=== PATIENT | female | born 1960 | race Caucasian/White ===

== ENCOUNTER → 2016-11-16 | Outpatient (CLI) | payer OTHER ==
[~2016-11-16] MED LIST: ARIMIDEX1 MG PO; BENADRYL ALLERG25 MG PO; BENADRYL25 MG PO; COMPAZINE10 MG PO; Ecotrin PO; FA-80.8 MG PO; IMDUR60 MG PO; LIPITOR40 MG PO; LOPRESSOR25 MG PO; Lipitor PO; Lopressor PO; NITROSTAT,NITR0.4 M1 SL; NORCO 5/3251 TABLET PO; Nitrostat,NitroQuick SL; OMEGA 3-6-91200 MG PO; PLAVIX75 MG PO; PROAIR HFA8.5 GM IH; PriLOSEC PO; Proventil,Ventolin H IH; STOOL SOFTENER250 MG PO; TRAMADOL HCL50 MG PO; VITAMIN D31000 UNIT PO; Valium PO; ZESTRIL20 MG PO; ZOFRAN ODT4 MG PO; ZOFRAN4 MG PO; Zestril,Prinivil PO; Zocor PO; Zoloft PO
== END | disposition home or self-care (01) ==
LOC: RAD 07:24
DX: J98.11 Atelectasis (principal); R16.0 Hepatomegaly, not elsewhere classified; C34.91 Malignant neoplasm of unspecified part of right bronchus or lung
CPT/HCPCS: 71260; 74177

== ENCOUNTER 2017-06-01 18:25 | Inpatient (IN) | payer OTHER ==
[~2017-06-01] VITALS: Ht 147.3 cm; Wt 68.1 kg
[~2017-06-01 18:25] MED LIST changes: +OXYCODONE HCL5 MG PO
[2017-06-01 20:06] LABS: EOSINOPHIL (%) 3.4 % (0-5); EOSINOPHIL COUNT 0.3 K/uL (0-0.3); HEMATOCRIT 23.8 % (36.0-46.0); IMMATURE GRANULOCYTE (%) 1.4 % (0.0-0.7); IMMATURE GRANULOCYTE COUNT 0.1 K/uL; INSTRUMENT ABS NEUTROPHIL CT 7.5 K/uL; LYMPHOCYTE COUNT 0.6 K/uL (1.0-2.8); MCH 30.3 PG (29.0-34.0); MCHC 33.2 G/DL (30.0-36.0); MCV 91.2 FL (83-99); MEAN PLAT.VOLUME 10.3 uM^3 (9.5-12.4); MONOCYTE (%) 7.4 % (3-12); MONOCYTE COUNT 0.7 K/uL (0-0.8); NEUTROPHIL (%) 81.3 % (45-76); NEUTROPHIL COUNT 7.5 K/uL (1.8-6.4); RBC DIS.WIDTH-CV 15.6 % (11.8-14.6); RED BLOOD COUNT 2.61 M/uL (3.80-5.20); WHITE BLOOD COUNT 9.3 K/uL (4.1-10.2)
[2017-06-01 20:14] LABS: CHLORIDE 103 mEq/L (99-109); SODIUM 136 mEq/L (136-147)
[2017-06-01 20:16] LABS: GLUCOSE 112 mg/dL (70-99); POTASSIUM 3.2 mEq/L (3.7-5.4)
[2017-06-01 20:17] LABS: ANION GAP 11 MEQ/L (2-14)
[2017-06-01 20:18] LABS: TOTAL BILIRUBIN 0.3 mg/dL (0.0-1.0)
[2017-06-01 20:19] LABS: ALKALINE PHOSPHATASE 81 IU/L (3-129)
[2017-06-01 20:20] LABS: GFR ESTIMATE (CALCULATED) > 59 mL/min/
[2017-06-01 20:21] LABS: UREA NITROGEN (BUN) 16 mg/dL (9-23)
[2017-06-01 20:57] LABS: PLATELET COUNT 137 K/uL (156-360)
[2017-06-01 20:58] LABS: PLAT.SUFFICIENCY DECREASED
[2017-06-01 21:43] LABS: ADD MIUA? YES; BILIRUBIN NEGATIVE; BLOOD SMALL; COLOR YELLOW ((YELLOW)); GLUCOSE (STRIP) NEGATIVE; KETONES NEGATIVE; LEUKOCYTES MODERATE; NITRITE NEGATIVE; PROTEIN (STRIP) NEGATIVE; SPECIFIC GRAVITY 1.011 (1.000-1.030); UROBILINOGEN 0.2 MG/DL (0.2-1.0)
[2017-06-01 21:49] LABS: BACTERIA RARE /HPF; CALCIUM OXALATE CRYSTALS 3+ /HPF; EPITHELIAL CELLS RARE /HPF; HYALINE CASTS 20-30 /LPF; MUCUS 1+ /LPF; RED BLOOD CELLS 0-5 /HPF (0-5); UCUL ADDED? NO
[2017-06-01 21:53] VITALS: BP 105/70
[2017-06-01 22:18] VITALS: BP 102/64
[2017-06-01] MEDS ORDERED: ZOLOFT100 MG PO (22:19)
[2017-06-01] MEDS ORDERED: PRILOSEC20 MG PO (22:19)
[2017-06-01] MEDS ORDERED: ZESTRIL20 MG PO (22:20)
[2017-06-01] MEDS ORDERED: PROAIR HFA8.5 GM IH (22:20)
[2017-06-01] MEDS ORDERED: LIPITOR40 MG PO (22:21)
[2017-06-01] MEDS ORDERED: LOPRESSOR25 MG PO (22:21)
[2017-06-01] MEDS ORDERED: NITROSTAT0.4 MG SL (22:21)
[2017-06-01 23:02] VITALS: BP 114/78
[2017-06-02] VITALS (12 sets, daily range): BP systolic 107–150; BP diastolic 53–86
[2017-06-02 06:46] LABS: ANION GAP 11 MEQ/L (2-14); CHLORIDE 108 MEQ/L (99-109); GFR ESTIMATE (CALCULATED) > 59 mL/min/; GLUCOSE 103 mg/dL (70-99); POTASSIUM 3.5 MEQ/L (3.7-5.4); SAMPLE HEMOLYSIS CHECK 0; SAMPLE ICTERIC CHECK 0; SAMPLE LIPEMIA CHECK 0; SODIUM 139 MEQ/L (136-147); UREA NITROGEN (BUN) 12 mg/dL (9-23)
[2017-06-02 06:53] LABS: EOSINOPHIL (%) 2.9 % (0-5); EOSINOPHIL COUNT 0.3 K/uL (0-0.3); IMMATURE GRANULOCYTE (%) 1.3 % (0.0-0.7); IMMATURE GRANULOCYTE COUNT 0.1 K/uL; INSTRUMENT ABS NEUTROPHIL CT 8.9 K/uL; LYMPHOCYTE COUNT 0.6 K/uL (1.0-2.8); MCH 31.2 PG (29.0-34.0); MCHC 34.7 G/DL (30.0-36.0); MCV 89.9 FL (83-99); MEAN PLAT.VOLUME 10.5 uM^3 (9.5-12.4); MONOCYTE (%) 7.4 % (3-12); MONOCYTE COUNT 0.8 K/uL (0-0.8); NEUTROPHIL COUNT 8.9 K/uL (1.8-6.4); PLATELET COUNT 129 K/uL (156-360); RBC DIS.WIDTH-CV 15.2 % (11.8-14.6); RBC DIS.WIDTH-SD 48.7 % (39-53); WHITE BLOOD COUNT 10.8 K/uL (4.1-10.2)
[2017-06-02 07:09] LABS: RED BLOOD COUNT 3.56 M/uL (3.80-5.20)
[2017-06-02 08:11] LABS: INTERNAL CONTROL VALID? YES
[2017-06-02 17:06] LABS: INTER. NORMALIZED RATIO 1.5; PROTHROMBIN TIME 16.5 SEC (10.2-12.9)
[2017-06-02 17:08] LABS: PTT 29.2 SEC (25-37)
[2017-06-02 19:54] LABS: METH RESISTANT S AUREUS PCR NEGATIVE (NEGATIVE)
[2017-06-02 19:56] LABS: PROBE CHECK PASS; SPECIMEN PROCESSING CONTROL PASS
[2017-06-03 04:20] VITALS: BP 124/68
[2017-06-03 07:51] VITALS: BP 137/75
[2017-06-03 10:29] VITALS: BP 137/75
[2017-06-03 11:06] LABS: TYPE OF FLUID PLEURAL
[2017-06-03 11:39] LABS: BODY FLUID LDH 214 IU/L; BODY FLUID PROTEIN 3.8 G/DL
[2017-06-03 12:02] LABS: BODY FLUID EOSINOPHILS 25 % (0-25); BODY FLUID RBC'S 9000 /MM^3 (0-100); BODY FLUID WBC'S 329 /MM^3 (0-500); MONONUCLEAR WBC'S 40 %; POLYNUCLEAR WBC'S 35 % (0-25)
[2017-06-03 16:06] VITALS: BP 143/79
[2017-06-03 19:30] VITALS: BP 142/77
[2017-06-03 20:53] VITALS: BP 133/77
[2017-06-04] VITALS (7 sets, daily range): BP systolic 102–180; BP diastolic 59–90
[2017-06-04 11:09] LABS: GFR ESTIMATE (CALCULATED) > 59 mL/min/; UREA NITROGEN (BUN) 8 mg/dL (9-23)
[2017-06-05 03:29] VITALS: BP 136/70
[2017-06-05 05:57] LABS: HEMATOCRIT 33.5 % (36.0-46.0); MCH 30.3 PG (29.0-34.0); MCHC 33.4 G/DL (30.0-36.0); MCV 90.5 FL (83-99); MEAN PLAT.VOLUME 9.6 uM^3 (9.5-12.4); PLATELET COUNT 142 K/uL (156-360); RBC DIS.WIDTH-CV 15.3 % (11.8-14.6); RBC DIS.WIDTH-SD 50.2 % (39-53)
[2017-06-05 06:36] LABS: ANION GAP 13 MEQ/L (2-14); CHLORIDE 104 MEQ/L (99-109); GFR ESTIMATE (CALCULATED) > 59 mL/min/; GLUCOSE 74 mg/dL (70-99); POTASSIUM 3.5 MEQ/L (3.7-5.4); SAMPLE HEMOLYSIS CHECK 0; SAMPLE ICTERIC CHECK 0; SAMPLE LIPEMIA CHECK 0; SODIUM 138 MEQ/L (136-147); UREA NITROGEN (BUN) 11 mg/dL (9-23)
[2017-06-05 07:36] VITALS: BP 137/73
[2017-06-05] MEDS ORDERED: PREDNISONE10 MG PO ×3 (11:24→11:51)
[2017-06-05] MEDS ORDERED: ADVAIR HFA120 INHALA IH (11:24)
[2017-06-05] MEDS ORDERED: LEVAQUIN750 MG PO (11:26)
[2017-06-05 11:36] VITALS: BP 117/76
== END 2017-06-05 14:12 | disposition home health service (06) | DRG 178 ==
LOC: EME 18:25 → 5EAST 22:09 → EDOF 22:09 → ENRESERV 22:11 → 5EAST 06-02 00:29
PROVIDERS: Emergency Medicine; Hospitalist; Internal Medicine Pulmonary Disease
PROC: 30233N1 Transfusion of Nonautologous Red Blood Cells into Peripheral Vein, Percutaneous Approach (ICD-10-PCS; principal; 2017-06-01)
PROC: 0W993ZZ Drainage of Right Pleural Cavity, Percutaneous Approach (ICD-10-PCS; 2017-06-03)
DX: J15.211 Pneumonia due to Methicillin susceptible Staphylococcus aureus (principal); J91.8 Pleural effusion in other conditions classified elsewhere; I95.9 Hypotension, unspecified; D64.81 Anemia due to antineoplastic chemotherapy; N39.0 Urinary tract infection, site not specified; R09.3 Abnormal sputum; D75.9 Disease of blood and blood-forming organs, unspecified; I10 Essential (primary) hypertension; E78.5 Hyperlipidemia, unspecified; C34.01 Malignant neoplasm of right main bronchus; R59.0 Localized enlarged lymph nodes; D63.8 Anemia in other chronic diseases classified elsewhere; J45.909 Unspecified asthma, uncomplicated; K21.9 Gastro-esophageal reflux disease without esophagitis; F32.9 Major depressive disorder, single episode, unspecified; F17.200 Nicotine dependence, unspecified, uncomplicated; Z79.51 Long term (current) use of inhaled steroids; Z85.3 Personal history of malignant neoplasm of breast; Z88.0 Allergy status to penicillin; Z88.2 Allergy status to sulfonamides
CPT/HCPCS: 71010; 76942; 80048; 80053; 80202; 81003; 82565; 82945; 83605; 83615 91; 84157; 84520; 85025; 85027; 85610; 85730; 86900; 86901; 86920; 87040; 87070; 87075; 87077; 87147; 87186; 87205; 87449; 87641; 88108; 88305; 89051; 94640; 94640 76; 94799; 99202; 99281; 99285; J1644; J1956; J2405; J2765; J3370; J7030; J7050; J7512; P9016

== ENCOUNTER 2017-06-18 18:06 | Inpatient (IN) | payer OTHER ==
[~2017-06-18] VITALS: Ht 147.3 cm; Wt 65.9 kg
[~2017-06-18 18:06] MED LIST changes: +ADVAIR HFA120 INHALA IH; +LEVAQUIN750 MG PO; +NITROSTAT0.4 MG SL; +PREDNISONE10 MG PO; +PRILOSEC20 MG PO; +ZOLOFT100 MG PO
[2017-06-18 19:42] LABS: HEMATOCRIT 33.1 % (36.0-46.0); MCH 29.8 PG (29.0-34.0); MCHC 33.5 G/DL (30.0-36.0); MEAN PLAT.VOLUME 10.3 uM^3 (9.5-12.4); NRBC (%) 0.2 /100 WBC (0-0); PLATELET COUNT 176 K/uL (156-360); RBC DIS.WIDTH-CV 15.9 % (11.8-14.6); RBC DIS.WIDTH-SD 51.8 % (39-53); RED BLOOD COUNT 3.73 M/uL (3.80-5.20); WHITE BLOOD COUNT 18.2 K/uL (4.1-10.2)
[2017-06-18 19:43] LABS: MCV 88.7 FL (83-99)
[2017-06-18 19:52] LABS: CHLORIDE 97 mEq/L (99-109); POTASSIUM 3.4 mEq/L (3.7-5.4); SODIUM 134 mEq/L (136-147)
[2017-06-18 19:54] LABS: GLUCOSE 103 mg/dL (70-99)
[2017-06-18 19:55] LABS: ANION GAP 13 MEQ/L (2-14)
[2017-06-18 19:56] LABS: TOTAL BILIRUBIN 0.3 mg/dL (0.0-1.0)
[2017-06-18 19:58] LABS: ALKALINE PHOSPHATASE 94 IU/L (3-129); GFR ESTIMATE (CALCULATED) > 59 mL/min/
[2017-06-18 19:59] LABS: UREA NITROGEN (BUN) 16 mg/dL (9-23)
[2017-06-18 20:07] LABS: TROP-I INTERPRETATION NEGATIVE; TROPONIN-I 0.27 ng/mL (0.0-0.30)
[2017-06-18 21:09] LABS: INTER. NORMALIZED RATIO 1.4; PROTHROMBIN TIME 15.6 SEC (10.2-12.9); PTT 26.5 SEC (25-37)
[2017-06-18 22:40] LABS: ABS NEUTROPHIL COUNT 15.5; ANISOCYTOSIS 1+; ATYPICAL LYMPHOCYTE 0.9 %; BAND NEUTROPHILS 13.9 % (0-8.0); EOSINOPHIL ABS CT 1.1; EOSINOPHILS 6.1 % (0-5.0); INSTRUMENT ABS NEUTROPHIL CT 13.6 K/uL; LYMPHOCYTES 5.2 % (15.0-45.0); MICROCYTOSIS 1+; NUCLEATED RBC'S 0.9; SEG.NEUTROPHILS 71.3 % (46.0-76.0)
[2017-06-18] MEDS ORDERED: ECOTRIN325 MG PO (22:54)
[2017-06-19 02:22] VITALS: BP 96/57
[2017-06-19 04:34] LABS: TROP-I INTERPRETATION NEGATIVE; TROPONIN-I 0.21 ng/mL (0.0-0.30)
[2017-06-19 08:58] VITALS: BP 100/66
[2017-06-19 12:10] VITALS: BP 117/58
[2017-06-19 16:29] VITALS: BP 108/70
[2017-06-19 20:25] VITALS: BP 118/64
[2017-06-19 23:45] VITALS: BP 133/74
[2017-06-20 03:25] VITALS: BP 100/57
[2017-06-20 08:23] VITALS: BP 120/78
[2017-06-20 11:22] LABS: HEMATOCRIT 30.3 % (36.0-46.0); MCH 30.1 PG (29.0-34.0); MCHC 33.3 G/DL (30.0-36.0); MCV 90.4 FL (83-99); MEAN PLAT.VOLUME 10.6 uM^3 (9.5-12.4); PLATELET COUNT 142 K/uL (156-360); RBC DIS.WIDTH-CV 16.1 % (11.8-14.6); RBC DIS.WIDTH-SD 52.4 % (39-53); RED BLOOD COUNT 3.35 M/uL (3.80-5.20); WHITE BLOOD COUNT 19.3 K/uL (4.1-10.2)
[2017-06-20 11:46] LABS: ANION GAP 13 MEQ/L (2-14); CHLORIDE 102 MEQ/L (99-109); GFR ESTIMATE (CALCULATED) > 59 mL/min/; GLUCOSE 133 mg/dL (70-99); POTASSIUM 3.3 MEQ/L (3.7-5.4); SAMPLE HEMOLYSIS CHECK 0; SAMPLE ICTERIC CHECK 0; SAMPLE LIPEMIA CHECK 0; SODIUM 135 MEQ/L (136-147); UREA NITROGEN (BUN) 10 mg/dL (9-23)
[2017-06-20 12:30] VITALS: BP 100/52
[2017-06-20] MEDS ORDERED: DUONEB 2.5-0.5 M3 ML AEROSOL (13:11)
[2017-06-20] MEDS ORDERED: DELTASONE20 M1 PO (13:18)
[2017-06-20] MEDS ORDERED: MORPHINE S10 MG/5 ML PO (13:18)
[2017-06-20] MEDS ORDERED: PREDNISONE10 MG PO ×2 (13:18)
[2017-06-20] MEDS ORDERED: LORAZEPAM0.5 MG PO (13:18)
[2017-06-20] MEDS ORDERED: LEVAQUIN500 MG PO (13:19)
[2017-06-20 16:30] VITALS: BP 104/66
== END 2017-06-20 19:06 | disposition home or self-care (01) | DRG 180 ==
LOC: EME 18:06 → EDOF 23:37 → ENRESERV 23:40 → 5EAST 06-19 02:03 → EDPENDDISDT 06-20 → ENPENDDIS 06-20 → EDPENDDISTM 06-20 → 5EAST 06-20 19:06
PROVIDERS: Emergency Medicine; Hospitalist
DX: C34.90 Malignant neoplasm of unspecified part of unspecified bronchus or lung (principal); J18.9 Pneumonia, unspecified organism; J91.0 Malignant pleural effusion; C78.7 Secondary malignant neoplasm of liver and intrahepatic bile duct; C79.70 Secondary malignant neoplasm of unspecified adrenal gland; J94.2 Hemothorax; D64.9 Anemia, unspecified; J44.0 Chronic obstructive pulmonary disease with (acute) lower respiratory infection; I10 Essential (primary) hypertension; Y95 Nosocomial condition; Z51.5 Encounter for palliative care; Z66 Do not resuscitate; E87.1 Hypo-osmolality and hyponatremia; E87.6 Hypokalemia; E78.5 Hyperlipidemia, unspecified; R09.02 Hypoxemia; K21.9 Gastro-esophageal reflux disease without esophagitis; F41.9 Anxiety disorder, unspecified; Z82.49 Family history of ischemic heart disease and other diseases of the circulatory system; Z79.899 Other long term (current) drug therapy; F17.200 Nicotine dependence, unspecified, uncomplicated; R74.8 Abnormal levels of other serum enzymes; Z85.3 Personal history of malignant neoplasm of breast; I25.10 Atherosclerotic heart disease of native coronary artery without angina pectoris; Z95.5 Presence of coronary angioplasty implant and graft; E66.9 Obesity, unspecified; Z92.21 Personal history of antineoplastic chemotherapy; Z68.30 Body mass index [BMI] 30.0-30.9, adult; R59.1 Generalized enlarged lymph nodes; Z87.01 Personal history of pneumonia (recurrent); Z87.442 Personal history of urinary calculi; Z92.3 Personal history of irradiation; R00.0 Tachycardia, unspecified; R11.0 Nausea
CPT/HCPCS: 71020; 71275; 80048; 80053; 80202; 83605; 84484; 85025; 85027; 85610; 85730; 87040; 93005; 94640; 94640 76; 94799; 96413; 99202; 99281; 99285; J0456; J0692; J2920; J3370; J7030; J7050; J9299